=== PATIENT | female | born 2005 | race African-American/Black ===

== ENCOUNTER 2025-04-28 17:17 | Emergency (ER) | payer OTHER, SELFPAY ==
--- OUTSIDE RECORDS SUMMARY | 2025-04-28 17:24 | XMS_ITS ---
Author Organization [facility] Address [address] [place], [place] [id number] Care Team Providers Care Child Protective Investigator Name Role Phone SAUD COVARRUBIAS Unavailable [phone] Angelique Flores Unavailable Unavailable REASON FOR VISIT foot pain follow up, swelling left foot follow up Social History Tobacco Use: Social History Observation Description Date Details (start date - stop date) Never Smoker NA - NA Tobacco Control (Standard) Question Answer Notes Tobacco use: Nonsmoker Encounters Encounter Location Date Provider Diagnosis [facility] [address] [place], [place] [id number] 04/02/2025 SAUD COVARRUBIAS Left foot pain M79.672 [...] if symptoms worsen or would like orthotics Progress Notes * Igor JACK MDOB:2004 (19 yo F)Acc No.[id number]:04/02/2025 Patient: Breana CHAVARRIA Igor Monica Provider: Faith Covarrubias DPM :2005 A ge:19 Y S ex:Female Date:04/02/2025 Address:[address] [place] [address] [id number] Subjective: * Chief Complaints: * 1 . Foot pain follow up. 2. Swelling left foot follow up. * HPI: H PI: Follow Up Visit P atient presents for follow up visit for left foot pain., Patient states their problem is, improving. Still has occassional pain but patient thinks it is because her foot is becoming flatter., MA: abdoulaye. * ROS: G eneral / Constitutional: Patient [...] denies b alance difficulty, Numbness, Burning/Tingling. * Medical History: * Social History: T obacco Use: T obacco Control (Standard) T obacco use: N onsmoker. * Medications: N one Objective: * Vitals: * Examination: C onstitutional: Constitutional T he [...] if symptoms worsen or would like orthotics) * Billing Information: * Visit Code: 71324 Office Visit, Est Pt., Level 3. * Procedure Codes: * Electronic signature of GUS SMITH DPM on 04/28/2025 at 05:24 PM CDT Sign off status: Pending * Provider: Faith Covarrubias DPM Date: 0 04/02/2025 Generated for Arelii lin/Bryon/eTransmitting on: 0 04/28/2025 05:24 PM CDT History and Physical Notes * HPI (History [...]
--- OUTSIDE RECORDS SUMMARY | 2025-04-28 17:24 | XMS_ITS | Clinical Summary ---
Author Organization [facility] Address [address] [place] [address] Care Team Providers Care Data Officer Name Role Phone Marvin Saucedo MD Primary Care Provider [phone] Source Comments [facility],non-owned Affiliates and Associated Physician Practices is amultiple site organization consisting of ambulatory clinics and hospital sitesin [place], [place], [place] and [place]. This disclosure is being madepursuant to the Care Everywhere program and may not contain all information available regarding this patient. Last updated 18.[facility] Allergies No known active allergies Medications * Be aware that medications may not be up to date on this document. Alwaysverify current medications with the patient. montelukast (SINGULAIR) 4 MG chew tablet Take 4 mg by mouth at bedtime. Active albuterol HFA (PROVENTIL;VENT RESHMA;PROAIR) 108 (90 BASE) MCG/ACT inhaler Inhale 2 Puffs by mouth every 6 hours as needed. Active fluticasone-vijaya meterol hfa (ADVAIR HFA) 115-21 MCG/ACT AERO Inhale 2 Puffs by mouth once daily. Active diazepam (DIASTAT) 10 MG gel Insert 5 mg into the rectum once as needed for Seizures (Lasting over 3 minutes) for 1 dose. 2 Box 1 01/10/2012 Active amoxicillin (AMOXIL) 250 MG capsule Take 250 mg by mouth. Active Active Problems Problem Noted Date Diagnosed Date Chest pain 10/23/2013 Family History Medical History Relation Name Comments Arrhythmia Neg Hx CVA<55(male) Neg Hx CVA<65(female) Neg Hx Cardiomyopathy Neg Hx Congenital Heart defect Neg Hx Heart Surgery Neg Hx Long QT Syndrome Neg Hx AK<55(male) Neg Hx AK<65(female) Neg Hx Marfan Syndrome Neg Hx Pacemaker Neg Hx Sudd. <30 Neg Hx Social History Tobacco Use Types Packs/Day Years Used Date Smoking Tobacco: Never Assessed Comments Unknown Sex and Gender Information Value Date Recorded Sex Assigned at Not on file Legal Sex Female 10:02 AM HONING MACHINE OPERATOR PRODUCTION Gender Identity Not on file Sexual Orientation Not on file Last Filed Vital Signs Vital Sign Reading Time Taken Comments Blood Pressure 86/54 10/23/2013 10:30 AM HONING MACHINE OPERATOR PRODUCTION Pulse 90 10/23/2013 10:30 AM HONING MACHINE OPERATOR PRODUCTION Temperature 37.1 C (98.8 F) 01/11/2012 12:09 AM HONING MACHINE OPERATOR PRODUCTION Respiratory Rate 20 10/23/2013 10:30 AM HONING MACHINE OPERATOR PRODUCTION Oxygen Saturation 100% 10/23/2013 10:30 AM HONING MACHINE OPERATOR PRODUCTION Inhaled Oxygen Concentration - - Weight 33.8 kg (74 lb 8.3 oz) 10/23/2013 10:30 A M HONING MACHINE OPERATOR PRODUCTION Height 140 cm (4' 7.12) 10/23/2013 10:30 AM HONING MACHINE OPERATOR PRODUCTION Body Mass Index 17.25 10/23/2013 10:30 AM HONING MACHINE OPERATOR PRODUCTION Plan of Treatment Health Maintenance Due Date Last Done Comments HIV SCREENING 2019 HPV VACCINE (1 - 3-dose series) 2019 CHLAMYDIA/GONORRHEA SCREENING 2020 MENINGOCOCCAL (Group B) VACC INE SHARED DECISION-MAKING (1 of 2 - Standard) 2020 HEPATITIS C SCREENING 10/30/2022 DTAP/TDAP/TD VACCINES (1 - Tdap) 2023 HEPATITIS B VACCINE (1 of 3 - 19+ 3-dose series) 2023 COVID-19 VACCINE (1 - 2023-2 5 season) 2024 DEPRESSION SCREENING 11/27/2024 INFLUENZA VACCINE (Season Ended) 2025 ZOSTER VACCINE (1 of 2) 2054 HIB VACCINE Aged Out No longer eligi ble based on patient's age to complete this topic MENINGOCOCCAL GROUPS A/C/Y/W VACCINE Aged Out No longer eligible b ased on patient's age to complete this topic PNEUMOCOCCAL VACCINE Aged Out No long er eligible based on patient's age to complete this topic Insurance [employer] Care Teams Data Officer Relationship Specialty Start Date End Date Marvin Saucedo MD [address] [facility] [place] [address] PCP - General 02/07/11
--- OUTSIDE RECORDS SUMMARY | 2025-04-28 17:25 | XMS_ITS | Clinical Summary ---
Author Organization [facility] Medical Office Building [address] Address [address] [place] [address] Care Team Providers Care Nail Mill Worker Name Role Phone Angelique Flores MD Primary Care Provider [phone] Allergies No known active allergies Medications methylPREDNISol one (Medrol, Gene,) 4 mg Dosepack follow package directions 1 packet 4 Active promethazine-DM (PROMETHAZINE-D M) 1.25-3 mg/mL syrup Take 5 mL by mouth 4 (four) times a day as needed for cough 118 mL 4 Active Active Problems No known active problems Encounters Date Type Department Care Team Description 02/27/2025 3:00 PM CDT Therapy [facility] OP Physical Therapy [address] [place] [phone] Lilly Reese, PT Edema of foot (Primary Dx) 02/27/2025 Plan of Care Documentation [facility] OP Physical Therapy [address] [place] [phone] from Last 3 Months Surgical History Surgery Date Site/Laterality Comments BREAST BIOPSY 02/28/2023 Left Family History Medical History Relation Name Comments Breast cancer Maternal Grandmother Breast cancer Maternal Great-Grandmother Breast cancer Mother Breast cancer Mother's Brother Relation Name Status Comments Maternal Grandmother Maternal Great-Grandmother Mother Mother's Brother Social History Tobacco Use Types Packs/Day Years Used Date Smoking Tobacco: Never Assessed Personal Safety Answer Date Recorded Have you ever been in or are you currently in a harmful physical or emotional relationship or is someone making you feel afraid or unsafe? Denies 06/06/2024 Comments Unknown Sex and Gender Information Value Date Recorded Sex Assigned at Not on file Legal Sex Female 2:36 PM WELDER PRODUCTION LINE COMBINATION Gender Identity Not on file Sexual Orientation Not on file Obstetrics History Last Filed Vital Signs Vital Sign Reading Time Taken Comments Blood Pressure 121/71 06/06/2024 4:21 PM CDT Pulse 106 06/06/2024 4:21 PM CDT Temperature 36.6 C (97.8 F) 06/06/2024 2:33 PM CDT Respiratory Rate 20 06/06/2024 4:21 PM CDT Oxygen Saturation 100% 06/06/2024 4:21 PM CDT Inhaled Oxygen Concentration - - Weight 62.6 kg (138 lb 0.1 oz) 06/06/2024 2:33 P M CDT Height 172.7 cm (5' 8) 06/06/2024 2:33 PM CDT Body Mass Index 20.98 06/06/2024 2:33 PM CDT Plan of Treatment Health Maintenance Due Date Last Done Comments Depression Screening 2004 Hepatitis C Screening 2004 Pneumococcal vaccine <65 (1 of 1 - PPSV23) 2010 02/06/2006, 08/05/2005, 06/13/2005, Additional history exists HPV Vaccines (1 - 3-dose series) 2019 Meningococcal B Vaccine (1 o f 2 - Standard) 2020 Regular Well Visit/Exam 18-64 2022 Covid-19 Vaccine (3 - 2023-2 5 season) 2024 03/17/2021, 02/23/2021 Influenza Vaccine (Season Ended) 2025 08/23/2022, 08/11/2020, 10/29/2019, Additional history exists DTaP/Tdap/Td Vaccine (7 - Td or Tdap) 07/11/2026 07/11/2016, 06/01/2010, 05/08/2006, Additional history exists Hepatitis B Screening Completed 12/08/2005 , 08/05/2005, 01/18/2005 Varicella Vaccines Completed 07/07/2008, 12/08/2005 Meningococcal Vaccine Completed 12/04/2020, 016 Medical Devices Implanted Type Area Buffer Operator Device Identifier Shelf Expiration Date Model / Serial / Lot Eve Limited Partnership Marker Biospy Site Mini Cork Shape [employer] Smaariannek-Finaero - [id number] Implanted:Qty: 1 on 02/28/2023 at [facility] Clip Left: Breast [employer] [id number] 07/05/2023 [facility] / / [id number] Insurance [facility] [id number] [facility] [id number] Care Teams Nail Mill Worker Relationship Specialty Start Date End Date Angelique Flores MD [address] [place] [address] PCP - General Family Medicine 01/17/23
--- OUTSIDE RECORDS SUMMARY | 2025-04-28 17:25 | XMS_ITS ---
Author Organization [facility] Address [address] [place], [place] [id number] Care Team Providers Care Store Loss Prevention Manager Name Role Phone SAUD COVARRUBIAS Unavailable [phone] Angelique Flores Unavailable Unavailable REASON FOR VISIT ultra sound follow up Encounters Encounter Location Date Provider Diagnosis [facility] [address] [place], [place] [phone] 01/08/2025 SAUD COVARRUBIAS Plan Of Treatment No Information Progress Notes * Igor JACK MDOB:2004 (19 yo F)Acc No.[id number]:01/08/2025 Patient: Breana Igor CHAVARRIA Provider: Faith Covarrubias DPM :2005 A ge:19 Y S ex:Female Date:01/08/2025 Address:[address] [facility] Melany [id number] Subjective: * Chief Complaints: * 1 . Ultra sound follow up. * Medical History: Objective: * Vitals: Assessment: Plan: * Treatment: * Billing Information: * Visit Code: * Procedure Codes: * Electronic signature of GUS SMITH DPM on 04/28/2025 at 05:24 PM CDT Sign off status: Pending * Provider: Faith Covarrubias DPM Date: 0 01/08/2025 Generated for Tom ceballos/Bryon/Johnitting on: 0 04/28/2025 05:24 PM CDT
--- OUTSIDE RECORDS SUMMARY | 2025-04-28 17:25 | XMS_ITS ---
Author Organization [facility] Address [address] [place], [place] [phone] Care Team Providers Care Dry Cans Back Tender Name Role Phone SAUD COVARRUBIAS Unavailable [phone] Angelique Flores Unavailable Unavailable REASON FOR VISIT discuss ultra sound, ultra sound follow up, swelling left foot follow up Encounters Encounter Location Date Provider Diagnosis [facility] [address] [place], [place] [phone] 01/29/2025 SAUD COVARRUBIAS Left foot pain M79.672 [...] more lymphatic massage and see dr viveros Progress Notes * Igor JACK MDOB:2004 (19 yo F)Acc No.[id number]:01/29/2025 Patient: Igor BRIGGS Provider: Faith Covarrubias DPM :2005 A ge:19 Y S ex:Female Date:01/29/2025 Address:[address] [place] [address] [facility] [facility] [id number] Subjective: * Chief Complaints: * 1 . Discuss ultra sound. 2. Ultra sound follow up. 3. Swelling left foot follow up. * HPI: H PI: Follow Up Visit P atient presents for follow up visit for ultra sound results. Patient mentioned that she is feeling more pain in the foot., Patient states their problem is, unchanged., MA: abdoulaye. Has an appointment with Dr Viveros next [...] alance difficulty, Numbness, Burning/Tingling. * Medical History: Objective: * Vitals: * Examination: C onstitutional: [...] more lymphatic massage and see dr viveros) * Billing Information: * Visit Code: 48934 Office Visit, Est Pt., Level 3. * Procedure Codes: * Electronic signature of GUS SMITH DPM on 04/28/2025 at 05:25 PM CDT Sign off status: Pending * Provider: Faith Covarrubias DPM Date: 0 01/29/2025 Generated for Tom ceballos/Bryon/Josh on: 0 04/28/2025 05:25 PM CDT History and Physical Notes * HPI (History of Present Illness) Category Sub-Category Detail Notes Category Not es HPI Follow Up Visit Patient presents for follow up visit for ultra sound results. Patient mentioned that she is feeling more pain in the foot., Patient states their problem is, unchanged., MA: Has an appointment with Dr Viveros next [...]
--- OUTSIDE RECORDS SUMMARY | 2025-04-28 17:25 | XMS_ITS | Referral Summary ---
Author Organization [facility] Medical Office Building 1 Address [address] [place] [address] Care Team Providers Care Knitter Hand Name Role Phone Angelique Flores MD Primary Care Provider [phone] Encounters Date Type Department Care Team Description 02/27/2025 Plan of Care Documentation [facility] OP Physical Therapy [address] [place] [phone] 02/27/2025 3:00 PM CDT Therapy [facility] OP Physical Therapy [address] [place] [phone] Lilly Reese, PT Edema of foot (Primary Dx) from Last 3 Months Allergies No known active allergies Medications methylPREDNISol one (Medrol, Gene,) 4 mg Dosepack follow package directions 1 packet 4 Active promethazine-DM (PROMETHAZINE-D M) 1.25-3 mg/mL syrup Take 5 mL by mouth 4 (four) times a day as needed for cough 118 mL 4 Active Active Problems No known active problems Social History Tobacco Use Types Packs/Day Years [...] on file Legal Sex Female 2:36 PM SINGLE NEEDLE OPERATOR Gender Identity Not on file Sexual Orientation [...] 06/06/2024 2:33 PM CDT Plan of Treatment Not on file Medical Devices Implanted Type Area Assistant Program Manager Device Identifier Shelf Expiration Date Model / Serial / Lot Dok[employer]ok Limited Partnership Marker Biospy Site Mini Cork Shape [employer] Jennifer-Finaero - [id number] Implanted:Qty: 1 on 02/28/2023 at [facility] Clip Left: Breast [employer] Partnership [id number] 07/05/2023 [facility]ArianneEcovision-FINA ERO / / [id number] Insurance [facility] [id number] [facility] [id number] Care Teams Knitter Hand Relationship Specialty Start Date End Date Angelique Flores MD [address] [phone] PCP - General Family Medicine 01/17/23
--- OUTSIDE RECORDS SUMMARY | 2025-04-28 17:25 | XMS_ITS | Patient Health Record ---
Author Organization [facility] Address [address] [place], [place] [id number] Care Team Providers Care Registrar Museum Name Role Phone SAUD LUND Unavailable [phone] Angelique Flores Unavailable Unavailable Allergies No Known Allergies Results Component Value Reference Range Notes MRI : Foot, Left Without Con trast Reviewed date:06/04/2024 04:37:45 PM Interpretation:SEE MRI REPORT Performing Lab: Notes/Report: SEE MRI REPORT Reason For Referral No Information Immunizations Vaccine Route Administration Date Status Comme nts Pneumococcal conjugate PCV 13 Unknown 05/01/2024 Refuse d Influenza, high dose seasonal Unknown 05/01/2024 Refuse d Social History Tobacco Use: Social History Observation Description Date Details (start date - stop date) Never Smoker NA - NA Tobacco Control (Standard) Question Answer Notes Tobacco use: Nonsmoker Vital Signs Height-cm 172.72 cm 08/15/2024 Weight-kg 67.13 kg 08/15/2024 BMI Percentile 59.24 % 08/15/2024 Height 68 in 08/15/2024 Weight 148 lbs 08/15/2024 BMI 22.5 kg/m2 08/15/2024 Procedures Procedure Date Ordered Date Performed Result Body Sit e PHYSICAL THERAPY 06/18/2024 07/25/2024 SEE PHYSICAL THERAP Y REPORT PHYSICAL THERAPY 01/29/2025 02/27/2025 SEE PHYSICAL THERAP Y REPORT Encounters Encounter Location Date Provider Diagnosis [facility] [address] [id number] 10/31/2024 SAUDGUILLERMO LUND Left foot pain M79.6 72 ; Lymphedema of left leg I89.0 ; Pain in right foot M79.671 ; Edema of foot R60.0 and Difficulty in walking R26.2 [facility] [place] [address] [id number] 01/08/2025 SAUDGUILLERMO LUND Left foot pain M79.6 72 ; Lymphedema of left leg I89.0 ; Pain in right foot M79.671 ; Edema of foot R60.0 and Difficulty in walking R26.2 [facility] [place] [address] [id number] 01/29/2025 SAUDGUILLERMO LUND Left foot pain M79.6 72 ; Lymphedema of left leg I89.0 ; Pain in right foot M79.671 ; Edema of foot R60.0 and Difficulty in walking R26.2 [facility] [place] [address] [id number] 04/02/2025 SAUD LUND Left foot pain M79.6 72 ; Lymphedema of left leg I89.0 ; Pain in right foot M79.671 ; Edema of foot R60.0 and Difficulty in walking R26.2 [facility] [place] [address] [id number] 05/01/2024 SAUD LUND Pathological fractur e in other disease, left foot, initial encounter for fracture M84.675A ; Left foot pain M79.672 ; Pain in right foot M79.671 ; Edema of foot R60.0 and Difficulty in walking R26.2 [facility] [place] [address] [id number] 05/22/2024 SAUD LUND Left foot pain M79.6 72 ; Pathological fracture in other disease, left foot, subsequent encounter for fracture with routine healing M84.675D ; Pain in right foot M79.671 ; Edema of foot R60.0 and Difficulty in walking R26.2 [facility] [address] [id number] 06/18/2024 SAUD LUND Left foot pain M79.6 72 ; Pathological fracture in other disease, left foot, subsequent encounter for fracture with routine healing M84.675D ; Pain in right foot M79.671 ; Edema of foot R60.0 and Difficulty in walking R26.2 [facility] [address] [place], [place] [id number] 08/15/2024 SAUD LUND Left foot pain M79.6 72 ; Pain in right foot M79.671 ; Edema of foot R60.0 and Difficulty in walking R26.2 Assessments Encounter Date Diagnosis (ICD Code) Assessment Notes Treatment Notes Treatment Clinical Notes Section Notes 05/01/2024 Pathological fracture in other disease, left foot, initial encounter for fracture (ICD-10 - M84.675A) 05/01/2024 Left foot pain (ICD-10 - M79.672) 05/22/2024 Pathological fracture in other disease, left foot, subsequent encounter for fracture with routine healing (ICD-10 - M84.675D) 05/22/2024 Left foot pain (ICD-10 - M79.672) 06/18/2024 Left foot pain (ICD-10 - M79.672) 08/15/2024 Pain in right foot (ICD-10 - M79.671) 08/15/2024 Left foot pain (ICD-10 - M79.672) 10/31/2024 Left foot pain (ICD-10 - M79.672) 10/31/2024 Lymphedema of left leg (ICD-10 - I89.0) 01/08/2025 Left foot pain (ICD-10 - M79.672) 01/29/2025 Left foot pain (ICD-10 - M79.672) 04/02/2025 Left foot pain (ICD-10 - M79.672) 04/02/2025 Lymphedema of left leg (ICD-10 - I89.0) 01/29/2025 Lymphedema of left leg (ICD-10 - I89.0) 01/08/2025 Lymphedema of left leg (ICD-10 - I89.0) 08/15/2024 Edema of foot (ICD-10 - R60.0) 10/31/2024 Pain in right foot (ICD-10 - M79.671) 06/18/2024 Pathological fracture in other disease, left foot, subsequent encounter for fracture with routine healing (ICD-10 - M84.675D) 05/01/2024 Pain in right foot (ICD-10 - M79.671) 05/22/2024 Pain in right foot (ICD-10 - M79.671) 05/01/2024 Edema of foot (ICD-10 - R60.0) 05/22/2024 Edema of foot (ICD-10 - R60.0) 06/18/2024 Pain in right foot (ICD-10 - M79.671) 08/15/2024 Difficulty in walking (ICD-10 - R26.2) 01/08/2025 Pain in right foot (ICD-10 - M79.671) 10/31/2024 Edema of foot (ICD-10 - R60.0) 01/29/2025 Pain in right foot (ICD-10 - M79.671) 04/02/2025 Pain in right foot (ICD-10 - M79.671) 01/29/2025 Edema of foot (ICD-10 - R60.0) 01/08/2025 Edema of foot (ICD-10 - R60.0) 10/31/2024 Difficulty in walking (ICD-10 - R26.2) 06/18/2024 Edema of foot (ICD-10 - R60.0) 05/01/2024 Difficulty in walking (ICD-10 - R26.2) 05/22/2024 Difficulty in walking (ICD-10 - R26.2) 04/02/2025 Edema of foot (ICD-10 - R60.0) 06/18/2024 Difficulty in walking (ICD-10 - R26.2) 01/08/2025 Difficulty in walking (ICD-10 - R26.2) 01/29/2025 Difficulty in walking (ICD-10 - R26.2) 04/02/2025 Difficulty in walking (ICD-10 - R26.2) 10/31/2024 [...] discontinue the medication if GI upset occurs. 01/08/2025 Other 1.Swelling is not stemming from [...] Ortiz and his input in this matter. 01/29/2025 Other 1.Swelling is not stemming from [...] Ortiz and his input in this matter. According to patient ultrasound stated that she did not need surgery but she doesn't know why. 04/02/2025 Other 1.Swelling is not stemming from [...] I recommended functional orthotics for the patient. 05/01/2024 Other 1. Stress Fracture: I discussed with the patient the nature and etiology of stress fractures. I discussed various treatment options consisting of immobilization, reducing activity and rest. I also discussed the use of orthotics to help prevent recurrence. 2. Cam Walker: A CAM walker was fitted and dispensed. The patient was instructed on its use. 3. Ice: Apply ice to the painful area for 10 - 15 minutes as needed 4. Prescribed Medrol Dose Pack for patient. Take as instructed on package and discontinue if any GI disturbance occurs 5. Patient was instructed to try an OTC topical pain reliever/anti-in flammatory such as Voltaren Gel, Aspercreme with Lidocaine, or Biofreeze etc over the affected areas. Spot test on hand or somewhere visible prior to starting to watch for possible rash/allergic reaction 6. Bunion: Discussed various treatments with the patient regarding hallux abducto valgus deformity. Discussed conservative care consisting of padding, wider shoes, anti-inflammator ies, and orthotics. Discussed surgical treatment options and answered all questions about the intra-operative and post-operative treatment course. 05/22/2024 Other 1. Stress Fracture: I discussed with the patient the nature and etiology of stress fractures. I discussed various treatment options consisting of immobilization, reducing activity and rest. I also discussed the use of orthotics to help prevent recurrence. 2. Continue in CAM boot 3. Ice: Apply ice to the painful area for 10 - 15 minutes as needed 4. Patient was instructed to try an OTC topical pain reliever/anti-in flammatory such as Voltaren Gel, Aspercreme with Lidocaine, or Biofreeze etc over the affected areas. Spot test on hand or somewhere visible prior to starting to watch for possible rash/allergic reaction 5. Request for MRI { } Right {x } Left { } Bilateral { x} Foot { } Ankle { } Bilateral { } With Contrast { x} Without Contrast *Reason - stress fracture 5th metatarsal, chronic edema, xrays negative 06/18/2024 Other 1. Possible that patient may be dealing with the onset of Lymphedema Praecox 2. Continue in CAM boot if needed to help with walking 3. Compression Stocking: The patient was instructed to continue in compression stockings for edema management. Advised patient to elevate feet at rest. 4. Patient was instructed to try an OTC topical pain reliever/anti-in flammatory such as Voltaren Gel, Aspercreme with Lidocaine, or Biofreeze etc over the affected areas. Spot test on hand or somewhere visible prior to starting to watch for possible rash/allergic reaction 5. Reviewed results of MRI with patient - findings show no significant bone or tendon pathology, subcutaneous edema noted 6. Will refer out to therapy for Lymphedema treatment/massag e to see if this improves swelling/pain 7. Blood work orders placed to rule out possible autoimmune issues 08/15/2024 Other 1. Possible that patient may be dealing with the onset of Lymphedema Praecox 2. Compression Stocking: The patient was instructed [...] to watch for possible rash/allergic reaction 4. Continue therapy for Lymphedema treatment/massag e to see if this improves swelling/pain Plan Of Treatment No Information Insurance Providers Payer Name Payer Address Payer Phone Subscriber Number Group Number Insured Name Patient Relationship to Insured Coverage Start Date Coverage End Date [employer] PPO [address] [place], [place] [id number] Igor Jack Self - patient is the insured Medical (General) History Medical History History ICD Code Asthma/Bronchitis
[2025-04-28 17:28] VITALS: BP 134/70; PULSE 131; RESP 20; TEMP 36.9; O2SAT 100
--- NOTE | 2025-04-28 18:03 | ED_ITS ---
HPI - General Adult General Chief complaint: Upper Respiratory Infection Stated complaint: Cough / Wheezing History of Present Illness HPI narrative: Igor Jack is a 19-year-old female with past medical history of asthma. Patient states that today while she was work she started to get an asthma attack and had it due to nebulize treatments. She states that now her breathing has improved and she is feeling better but feels like she may need to be on steroids to help her asthma attack that she had today. She denies any other URI symptoms fevers chest pain shortness of breath. Related Data Home Medications ?Medication ?Instructions ?Recorded ?Confirmed ?Last Taken ?Type albuterol 90 mcg-budesonide 80 2 inh inhalation DAILY PRN 04/28/25 04/28/25 Unknown History mcg/actuation HFA aerosol inhaler shortness of breath (Airsupra) albuterol 90 mcg-budesonide 80 inh inhalation 04/28/25 Unknown History mcg/actuation HFA aerosol inhaler (Airsupra) ferrous sulfate 325 mg (65 mg mg 04/28/25 Unknown History iron) tablet (FeroSul) Allergies Allergy/AdvReac Type Severity Reaction Status Date / Time No Known Allergies Allergy Verified 04/28/25 17:36 Review of Systems Review of Systems: All systems reviewed & are unremarkable except as noted in HPI and below Exam Narrative: GENERAL: Well-appearing, well-nourished, and in no acute distress. HEAD: Normocephalic, atraumatic. EYES: PERRLA and EOMI. ENT: Nares clear, no rhinorrhea or epistaxis. Mucous membranes moist. Oropharynx without tonsillar hypertrophy exudate or other lesions. Bilateral TMs pearly gomez non bulging NECK: Supple. No adenopathy or masses. No carotid bruits or JVD CHEST: Clear to auscultation. No respiratory distress. No wheezes rales or rhonchi HEART: Regular rate and rhythm. No murmur heard. Normal peripheral pulses. ABDOMEN: Soft, nontender, nondistended, normal active bowel sounds. EXTREMITIES: Normal range of motion. No edema. SKIN: Warm, dry, no rash. NEURO: No focal deficits. Alert and oriented x3. PSYCH: Normal mood and affect. Course Course Level of Care: Express Care Visit Vital Signs Vital signs: Vital Signs Temperature 36.9 C 04/28/25 17:28 Pulse Rate 131 H 06/02/25 17:28 Respiratory Rate 20 04/28/25 17:28 Blood Pressure 134/70 04/28/25 17:28 Pulse Oximetry 100 04/28/25 17:28 Oxygen Delivery Room Air 04/28/25 17:28 Temperature 36.9 C 04/28/25 17:28 Pulse Rate 131 H 04/28/25 17:28 Respiratory Rate 20 04/28/25 17:28 Blood Pressure 134/70 04/28/25 17:28 Pulse Oximetry 100 04/28/25 17:28 Oxygen Delivery Room Air 04/28/25 17:28 Medical Decision Making MDM Narrative Medical decision making narrative: 19 y/o female presents after having an asthma attack today. She states she did two neb treatments earlier today and her symptoms have improved but concerned she may need a round of steroids LUng sounds clear throughout at this time Patient is very well appearing heart rate improving she states it was elevated after the neb treatment. PLan to give a dose of prednisone here and d/c with continued prednisone close PCP follow up Return precautions discussed Medical Records Medical records reviewed: Yes I reviewed the external patient's medical records. Vital Signs Vital Signs: Vital Signs Temperature 36.9 C 04/28/25 17:28 Pulse Rate 131 H 04/28/25 17:28 Respiratory Rate 20 04/28/25 17:28 Blood Pressure 134/70 04/28/25 17:28 Pulse Oximetry 04/28/25 17:28 Oxygen Delivery Room Air 04/28/25 17:28 Temperature 36.9 C 04/28/25 17:28 Pulse Rate 131 H 04/28/25 17:28 Respiratory Rate 04/28/25 17:28 Blood Pressure 134/70 04/28/25 17:28 Pulse Oximetry 04/28/25 17:28 Oxygen Delivery Room Air 04/28/25 17:28 Vitals reviewed Discharge Plan Discharge Clinical Impression: Asthma Qualifiers: Asthma severity: mild Asthma persistence: intermittent Asthma complication type: unspecified Qualified Code(s): J45.20 - Mild intermittent asthma, uncomplicated Patient Disposition: Home Condition: Stable Instructions: Antibiotic Form Additional Instructions: Continue to take the Prednisone as ordered for the next 5 days Continue your inhalers as ordered Continue to take the Zyrtec for allergies as discussed Follow up with your PCP in 1 week If you develop any worsening symptoms : Wheezing/ Shortness of breath/ fever/ chest pain proceed to the ER Patient Language: Sri Lankan Prescriptions: New prednisone 20 mg tablet 40 mg PO DAILY Qty: 10 0RF Rx Instructions: Take two tabs daily for 5 days No Action ferrous sulfate [FeroSul] 325 mg (65 mg iron) tablet Airsupra 90-80 mcg/actuation HFA aerosol inhaler INHALATION Airsupra 90-80 mcg/actuation HFA aerosol inhaler 2 inh inhalation DAILY PRN (Reason: shortness of breath) Patient Comments: for asthma Follow-up/Referrals: Mark,Angelique Kc MD [Primary Care Provider] - 1 Week Time of Disposition: 18:04
[2025-04-28] MEDS: predniSONE 20 MG TABLET 40 MG PO (18:07)
== END 2025-04-28 18:10 | disposition home or self-care (01) ==
PROVIDERS: Emergency Provider Nurse Practitioner Family; PCP Family Medicine
DX: J45.20 Mild intermittent asthma, uncomplicated (principal)
CPT/HCPCS: 99213; G0463; J7512

== ENCOUNTER 2025-10-05 11:19 | Emergency (ER) | payer OTHER, SELFPAY ==
--- OUTSIDE RECORDS SUMMARY | 2024-10-31 04:30 | XMS_ITS ---
Author Organization [facility] Address [address] [place], [place] [id number] Care Team Providers Care Cloth Finishing Range Back Tender Name Role Phone SAUD COVARRUBIAS Unavailable [phone] Angelique Flores Unavailable Unavailable REASON FOR VISIT PT follow up, swelling left foot follow up Medications Medication SIG (Take, Route, Frequency, Duration) Notes Start Date End Date Status Diclofenac Sodium 75 MG Tablet Delayed Release 1 tablet as needed Orally Twice a day; Duration: 14 days 10/31/2024 11/14/2024 Active Encounters Encounter Location Date Provider Diagnosis [facility] [address] [place], [place] [id number] 10/31/2024 SAUD COVARRUBIAS Left foot pain M79.672 ; Lymphedema of left leg I89.0 ; Pain in right foot M79.671 ; Edema of foot R60.0 and Difficulty in walking R26.2 Assessments Encounter Date Diagnosis (ICD Code) Assessment Notes Treatment Notes Treatment Clinical Notes Section Notes 10/31/2024 Left foot pain (ICD-10 - M79.672) 10/31/2024 Lymphedema of left leg (ICD-10 - I89.0) 10/31/2024 Pain in right foot (ICD-10 - M79.671) 10/31/2024 Edema of foot (ICD-10 - R60.0) 10/31/2024 Difficulty in walking (ICD-10 - R26.2) 10/31/2024 Other 1. Still believe it is possible that patient may be dealing with the onset of Lymphedema Praecox, parents have issues with lymphedema as well. Swelling is not stemming from bunion and MRI was completely negative of the left foot for pathology. 2. Compression Stocking: The patient was instructed to continue in compression stockings for edema management. Advised patient to elevate feet at rest. 3 Patient was instructed to try an OTC topical pain reliever/anti-in flammatory such as Voltaren Gel, Aspercreme with Lidocaine, or Biofreeze etc over the affected areas. Spot test on hand or somewhere visible prior to starting to watch for possible rash/allergic reaction 4. May continue in walking boot if she cannot wear a shoe due to swelling 5. Recommend patient return to therapy for Lymphedema treatment/massag e to see if this improves swelling/pain but patient states they did no massage treatment for her just told her to wear compression. She is not opposed to going back but wishes to see Vascular first. 6. Will refer to vascular for more in depth evaluation. Appreciate Dr Ortiz and his input in this matter. 7. The patient was prescribed Diclofenac 75mg, one tablet BID. They were advised to discontinue the medication if GI upset occurs. Plan Of Treatment Medication Medication Name Sig Start Date Stop Date Notes Diclofenac Sodium 75 MG Tabl et Delayed Release 1 tablet as needed Orally Twice a day; Duration: 14 days 10/31/2024 11/14/2024 Treatment Notes Assessment Notes Other 1. Still believe it is possible that patient may be dealing with the onset of Lymphedema Praecox, parents have issues with lymphedema as well. Swelling is not stemming from bunion and MRI was completely negative of the left foot for pathology. 2. Compression Stocking: The patient was instructed to continue in compression stockings for edema management. Advised patient to elevate feet at rest. 3 Patient was instructed to try an OTC topical pain reliever/anti-inflammatory such as Voltaren Gel, Aspercreme with Lidocaine, or Biofreeze etc over the affected areas. Spot test on hand or somewhere visible prior to starting to watch for possible rash/allergic reaction 4. May continue in walking boot if she cannot wear a shoe due to swelling 5. Recommend patient return to therapy for Lymphedema treatment/massage to see if this improves swelling/pain but patient states they did no massage treatment for her just told her to wear compression. She is not opposed to going back but wishes to see Vascular first. 6. Will refer to vascular for more in depth evaluation. Appreciate Dr Ortiz and his input in this matter. 7. The patient was prescribed Diclofenac 75mg, one tablet BID. They were advised to discontinue the medication if GI upset occurs. Next Appt Details Follow Up: prn, Reason: will follow up with patient once she has seen vascular History and Physical Notes * HPI (History of Present Illness) Category Sub-Category Detail Notes Category Not es HPI Follow Up Visit Patient presents for follow up visit for Physical Therapy. Patient stated that she has not been going to therapy because she was told by the therapist that she only needed to come when the swelling got worse but Igor says she doesn't know what qualifies as worse because it is always swollen. Can't control the swelling still. Put the cam walker back on because it hurt to wear a shoe and was to swollen to get the shoe on. Has been using the cam walker for about a month this time. Been using a peice of craft foam to help with swelling. Which worked a little bit. Patient mentioned previously using predinisone for asthma, and afraid it didn't work when it was perscribed. Thinks we might need to try a different one. , MA: beg Examination Category Sub-Category Detail Notes Category Not es Dermatologic Skin findings: Skin is warm, dr y, supple with no breaks in the skin. Neurologic Gross sensation Gross sensation is intact to light touch. Vascular Dorsalis pedis pulse: 2/4, bilateral Edema: , non-pitting edema, diffuse to dorsal left midfoot Capillary refill: less than 3 seconds, bilaterally Posterior tibial pulse: 2/4, bilaterally Musculoskeletal Muscle Strength Muscle strength is 5/5 in regards to dorsiflexion, plantarflexion, inversion, and eversion in bilateral lower extremities. Pain on palpation There is mild pain o n palpation of the shaft of the 2nd and 3rd metatarsal left foot. Hallux Abducto Valgus There is lateral d eviation of bilateral hallux., There is a small medial prominence noted., The range of motion is, smooth Foot Structure The foot structure i s noted to be, planus, bilaterally Gait There is an antalgic gait noted Constitutional Constitutional The patient is a wake, alert, well developed, well groomed and well nourished. Progress Notes * Igor JACK MDOB:2004 (19 yo F)Acc No.[id number]:10/31/2024 Patient: Igor Pérez Provider: Faith Covarrubias DPM :2005 A ge:18 Y S ex:Female Date:10/31/2024 Address:[address] [place] [address] [place], [id number] Subjective: * Chief Complaints: * P T follow upSwelling left foot follow up * HPI: H PI: Follow Up Visit P atient presents for follow up visit for Physical Therapy. Patient stated that she has not been going to therapy because she was told by the therapist that she only needed to come when the swelling got worse but Igor says she doesn't know what qualifies as worse because it is always swollen. Can't control the swelling still. Put the cam walker back on because it hurt to wear a shoe and was to swollen to get the shoe on. Has been using the cam walker for about a month this time. Been using a peice of craft foam to help with swelling. Which worked a little bit. Patient mentioned previously using predinisone for asthma, and afraid it didn't work when it was perscribed. Thinks we might need to try a different one. , MA: beg. * ROS: G eneral / Constitutional: Patient denies c hills, fatigue, fever. C ardiovascular: Patient denies h air loss on leg, edema, cramps in legs and feet. M usculoskeletal: Patient denies c hildhood foot problems, weakness. ? P eripheral Vascular: Patient denies c old extremities, blood clots in legs. P odiatric: Patient complains of b all of foot pain, foot swelling.? S kin: Patient denies d iscoloration, nail changes. ? N eurologic: Patient denies b alance difficulty, Numbness, Burning/Tingling. * Medications: T akingDiclofenac Sodium 75 MG Tablet Delayed Release 1 tablet as needed Orally Twice a day , stop date 11/14/2024Medication List reviewed and reconciled with the patientTaking Diclofenac Sodium 75 MG Tablet Delayed Release 1 tablet as needed Orally Twice a day , stop date 11/14/2024Medication List reviewed and reconciled with the patient Objective: * Examination: C onstitutional: Constitutional T he patient is awake, alert, well developed, well groomed and well nourished.. M usculoskeletal: Muscle Strength M uscle strength is 5/5 in regards to dorsiflexion, plantarflexion, inversion, and eversion in bilateral lower extremities.. Pain on palpation T here is mild pain on palpation of the shaft of the 2nd and 3rd metatarsal left foot. . Hallux Abducto Valgus T here is lateral deviation of bilateral hallux., There is a small medial prominence noted., The range of motion is, smooth. Foot Structure T he foot structure is noted to be, planus, bilaterally. Gait T here is an antalgic gait noted. ? N eurologic: Gross sensation G ross sensation is intact to light touch..? V ascular: Dorsalis pedis pulse: 2 /4, bilateral. Posterior tibial pulse: 2 /4, bilaterally. Capillary refill: l ess than 3 seconds, bilaterally. Edema: , non-pitting edema, diffuse to dorsal left midfoot?. D ermatologic: Skin findings: S kin is warm, dry, supple with no breaks in the skin.. Assessment: * Assessment: 1. L ymphedema of left leg - I89.0 (Primary) 2 . L eft foot pain - M79.672? 3. P ain in right foot - M79.671 4 . E sagar of foot - R60.0? 5. D ifficulty in walking - R26.2 Plan: * Treatment: 2. O thers Notes: 1. S till believe it is possible that patient may be dealing with the onset of Lymphedema Praecox, parents have issues with lymphedema as well. S welling is not stemming from bunion and MRI was completely negative of the left foot for pathology. 2. Compression Stocking: The patient was instructed to continue in compression stockings for edema management. Advised patient to elevate feet at rest. 3 Patient was instructed to try an OTC topical pain reliever/anti-inflammatory such as Voltaren Gel, Aspercreme with Lidocaine, or Biofreeze etc over the affected areas. Spot test on hand or somewhere visible prior to starting to watch for possible rash/allergic reaction 4. May continue in walking boot if she cannot wear a shoe due to swelling 5. Recommend patient return to [facility] for Lymphedema treatment/massage to see if this improves swelling/pain but patient states they did no massage treatment for her just told her to wear compression. She is not opposed to going back but wishes to see Vascular first. 6. Will refer to vascular for more in depth evaluation. Appreciate Dr Ortiz and his input in this matter. 7. The patient was prescribed Diclofenac 75mg, one tablet BID. They were advised to discontinue the medication if GI upset occurs. * Follow Up: p rn (Reason: will follow up with patient once she has seen vascular) Billing Information: * Visit Code: 36128 Office Visit, Est Pt., Level 3. * Electronic signature of GUS SMITH DPM on 10/05/2025 at 11:22 AM TANK TENDER Sign off status: Pending * Provider: Faith Covarrubias DPM Date: 01/01/2024 Generated for Tom ceballos/Bryon/Johnitting on: 12/05/2024 11:22 AM TANK TENDER
--- OUTSIDE RECORDS SUMMARY | 2025-01-08 06:10 | XMS_ITS ---
Author Organization [facility] Address [address] [place], [place] [address] Care Team Providers Care Power House Engineer Name Role Phone SADU COVARRUBIAS Unavailable [phone] Angelique Folres Unavailable Unavailable REASON FOR VISIT ultra sound follow up, swelling left foot follow up Encounters Encounter Location Date Provider Diagnosis [facility] [address] [place], [place] [id number] 01/08/2025 SAUD COVARRUBIAS Left foot pain M79.672 ; Lymphedema of left leg I89.0 ; Pain in right foot M79.671 ; Edema of foot R60.0 and Difficulty in walking R26.2 Assessments Encounter Date Diagnosis (ICD Code) Assessment Notes Treatment Notes Treatment Clinical Notes Section Notes 01/08/2025 Left foot pain (ICD-10 - M79.672) 01/08/2025 Lymphedema of left leg (ICD-10 - I89.0) 01/08/2025 Pain in right foot (ICD-10 - M79.671) 01/08/2025 Edema of foot (ICD-10 - R60.0) 01/08/2025 Difficulty in walking (ICD-10 - R26.2) 01/08/2025 Other 1.Swelling is not stemming from bunion and MRI [...] e to see if this improves swelling/pain 6. Appreciate Dr Ortiz and his input in this matter. Plan Of Treatment Treatment Notes Assessment Notes Other 1.Swelling is not stemming from bunion and MRI [...] treatment/massage to see if this improves swelling/pain 6. Appreciate Dr Ortiz and his input in this matter. Next Appt Details Follow Up: prn, Reason: will follow up with patient once she has seen vascular History and Physical Notes * HPI (History of Present Illness) Category Sub-Category Detail Notes Category Not es HPI Follow Up Visit Patient presents for follow up visit for left foot ultrasound. Patient states that the ultrasound showed her vein reflux was at a 0.6. They told her that is not enough for surgerybut they would like to do a stab phlebectomy. She has an appointment next month to talk about the procedure. MA: mca, Examination Category Sub-Category Detail Notes Category Not es Dermatologic Skin findings: Skin is warm, dr bowers, supple with no breaks in the skin. [...] * Igor JACK MDOB:2004 (19 yo F)Acc No.[id number]:01/08/2025 Patient: Breana yazanIgor Provider: Faith Covarrubias DPM :2005 A ge:19 Y S ex:Female Date:01/08/2025 Address:[address] [place] [address] [id number] Subjective: * Chief Complaints: * U ltra sound follow upSwelling left foot follow up * HPI: H PI: Follow Up Visit P atient presents for follow up visit for left foot ultrasound. Patient states that the ultrasound showed her vein reflux was at a 0.6. They told her that is not enough for surgerybut they would like to do a stab phlebectomy. She has an appointment next month to talk about the procedure. MA: vijay, . * ROS: G eneral / Constitutional: Patient [...] b alance difficulty, Numbness, Burning/Tingling. * Medications: N one Objective: * Examination: C onstitutional: Constitutional T [...] in walking - R26.2 Plan: * Treatment: * Follow Up: p rn (Reason: will follow up with patient once she has seen vascular) Billing Information: * Visit Code: 85186 Office Visit, Est Pt., Level 3. * Electronic signature of GUS SMITH DPM on 10/05/2025 at 11:22 AM MANAGER OF APPLICATIONS DEVELOPMENT Sign off status: Pending * Provider: Faith Covarrubias DPM Date: 0 01/08/2025 Generated for Tom ceballos/Bryon/Johnitting on: 12/05/2024 11:22 AM MANAGER OF APPLICATIONS DEVELOPMENT
--- OUTSIDE RECORDS SUMMARY | 2025-01-29 08:30 | XMS_ITS ---
Author Organization [facility] Address [address] [place], [place] [phone] Care Team Providers Care Sed High School Teacher Name Role Phone SAUD COVARRUBIAS Unavailable [phone] Angelique Flores Unavailable Unavailable REASON FOR VISIT discuss ultra sound, ultra sound follow up, swelling left foot follow up Encounters Encounter Location Date Provider Diagnosis [facility] [address] [place], [place] [phone] 01/29/2025 SAUD COVARRUBIAS Left foot pain M79.672 ; Lymphedema of left leg I89.0 ; Pain in right foot M79.671 ; Edema of foot R60.0 and Difficulty in walking R26.2 Assessments Encounter Date Diagnosis (ICD Code) Assessment Notes Treatment Notes Treatment Clinical Notes Section Notes 01/29/2025 Left foot pain (ICD-10 - M79.672) 01/29/2025 Lymphedema of left leg (ICD-10 - I89.0) 01/29/2025 Pain in right foot (ICD-10 - M79.671) 01/29/2025 Edema of foot (ICD-10 - R60.0) 01/29/2025 Difficulty in walking (ICD-10 - R26.2) 01/29/2025 Other 1.Swelling is not stemming from bunion [...] if this improves swelling/pain 6. Appreciate Dr Viveros and his input in this matter. According to patient ultrasound stated that she did not need surgery but she doesn't know why. Plan Of Treatment Treatment Notes Assessment Notes [...] if this improves swelling/pain 6. Appreciate Dr Viveros and his input in this matter. According to patient ultrasound stated that she did not need surgery but she doesn't know why. Next Appt Details Follow Up: 2 Months, Reason: will follow up with patient once she has done more lymphatic massage and see dr viveros History and Physical Notes * HPI (History of Present Illness) Category Sub-Category Detail Notes Category Not es HPI Follow Up Visit Patient presents for follow up visit for ultra sound results. Patient mentioned that she is feeling more pain in the foot., Patient states their problem is, unchanged., MA: mf Has an appointment with Dr Viveros next week. Examination Category Sub-Category Detail Notes Category Not [...] * Igor JACK MDOB:2004 (19 yo F)Acc No.[id number]:01/29/2025 Patient: Breana yazan Igor M Provider: Faith Covarrubias DPM :2005 A ge:19 Y S ex:Female Date:01/29/2025 Address:[address] [place] [address] [address] [place] [id number] Subjective: * Chief Complaints: * D iscuss ultra soundUltra sound follow upSwelling left foot follow up * HPI: H PI: Follow Up Visit P atient presents for follow up visit for ultra sound results. Patient mentioned that she is feeling more pain in the foot., Patient states their problem is, unchanged., MA: . Has an appointment with Dr Viveros next week. * ROS: G eneral / Constitutional: Patient [...] R26.2 Plan: * Treatment: * Follow Up: 2 Months (Reason: will follow up with patient once she has done more lymphatic massage and see dr viveros) Billing Information: * Visit Code: 57316 Office Visit, Est Pt., Level 3. * Electronic signature of GUS SMITH DPM on 10/05/2025 at 11:22 AM COOK SHORT ORDER Sign off status: Pending * Provider: Faith Covarrubias DPM Date: 0 01/29/2025 Generated for Tom ceballos/Bryon/Johnitting on: 12/05/2024 11:22 AM COOK SHORT ORDER
--- OUTSIDE RECORDS SUMMARY | 2025-04-02 09:30 | XMS_ITS ---
Author Organization [facility] Address [address] [place], [place] [address] Care Team Providers Care Laboratory Supervisor Name Role Phone SAUD COVARRUBIAS Unavailable [phone] Angelique Flores Unavailable Unavailable REASON FOR VISIT foot pain follow up, swelling left foot follow up Social History Tobacco Use: Social History Observation Description Date Details (start date - stop date) Never Smoker NA - NA Social History Tobacco Use: Social Info Question Answer Notes Tobacco Control (Standard) Tobacco use: Nonsmoker Encounters Encounter Location Date Provider Diagnosis [facility] [address] [place], [place] [phone] 04/02/2025 SAUD COVARRUBIAS Left foot pain M79.672 ; Lymphedema of left leg I89.0 ; Pain in right foot M79.671 ; Edema of foot R60.0 and Difficulty in walking R26.2 Assessments Encounter Date Diagnosis (ICD Code) Assessment Notes Treatment Notes Treatment Clinical Notes Section Notes 04/02/2025 Left foot pain (ICD-10 - M79.672) 04/02/2025 Lymphedema of left leg (ICD-10 - I89.0) 04/02/2025 Pain in right foot (ICD-10 - M79.671) 04/02/2025 Edema of foot (ICD-10 - R60.0) 04/02/2025 Difficulty in walking (ICD-10 - R26.2) 04/02/2025 Other 1.Swelling is not stemming from bunion [...] to watch for possible rash/allergic reaction 4. Orthotic Recommendation: I recommended functional orthotics for the patient. Plan Of Treatment Treatment Notes Assessment Notes [...] to watch for possible rash/allergic reaction 4. Orthotic Recommendation: I recommended functional orthotics for the patient. Next Appt Details Follow Up: prn, Reason: will call if symptoms worsen or would like orthotics History and Physical Notes * HPI (History of Present Illness) Category Sub-Category Detail Notes Category Not es HPI Follow Up Visit Patient presents for follow up visit for left foot pain., Patient states their problem is, improving. Still has occassional pain but patient thinks it is because her foot is becoming flatter., MA: mf Examination Category Sub-Category Detail Notes Category Not es Dermatologic Skin findings: Skin is warm, dr y, supple with no breaks in the skin. Neurologic Gross sensation Gross sensation is intact to light touch. Vascular Dorsalis pedis pulse: 2/4, bilateral Edema: , non-pitting edema, diffuse to dorsal left midfoot - significantly lessened Capillary refill: less than 3 seconds, bilaterally [...] s noted to be, planus, bilaterally Gait Constitutional Constitutional The patient is a wake, alert, well developed, well groomed and well nourished. Progress Notes * Igor JACK MDOB:2004 (19 yo F)Acc No.[id number]:04/02/2025 Patient: Igor Pérez Provider: Faith Covarrubias DPM :2005 A ge:19 Y S ex:Female Date:04/02/2025 Address:[address] [place] [address] [address] [id number] Subjective: * Chief Complaints: * F oot pain follow upSwelling left foot follow up * HPI: H PI: [facility]., Patient states their problem is, improving. Still has occassional pain but patient thinks it is because her foot is becoming flatter., MA: . * ROS: G eneral / Constitutional: [...] denies b alance difficulty, Numbness, Burning/Tingling. * Social History: T obacco Use: T obacco Control (Standard) T obacco use: N onsmoker. Social History Verified. * Medications: N one Objective: * Examination: [...] structure is noted to be, planus, bilaterally. N eurologic: Gross sensation G ross sensation is intact to light touch..? V ascular: Dorsalis pedis pulse: 2 /4, bilateral. Posterior tibial pulse: 2 /4, bilaterally. Capillary refill: l ess than 3 seconds, bilaterally. Edema: , non-pitting edema, diffuse to dorsal left midfoot - significantly lessened. D ermatologic: Skin findings: S kin is [...] * Follow Up: p rn (Reason: will call if symptoms worsen or would like orthotics) Billing Information: * Visit Code: 15415 Office Visit, Est Pt., Level 3. * Electronic signature of GUS SMITH DPM on 10/05/2025 at 11:22 AM PRODUCTION CLERK Sign off status: Pending * Provider: Faith Covarrubias DPM Date: 0 04/02/2025 Generated for Tom ceballos/Bryon/Johnitting on: 1 12/05/2024 11:22 AM PRODUCTION CLERK
--- OUTSIDE RECORDS SUMMARY | 2025-10-05 11:22 | XMS_ITS | Clinical Summary ---
Author Organization [facility] Address [address] [place] [address] Care Team Providers Care Sales Support Engineer Name Role Phone Angelique Flores MD Primary Care Provider [phone] Allergies No known active allergies Medications methylPREDNISol one (Medrol, Gene,) 4 mg Dosepack follow package directions 1 packet 4 Active promethazine-DM (PROMETHAZINE-D M) 1.25-3 mg/mL syrup Take 5 mL by mouth 4 (four) times a day as needed for cough 118 mL 4 Active Active Problems No known active problems Surgical History Surgery Date Site/Laterality Comments BREAST [...] on file 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 Gender Identity Not on file Sexual Orientation [...] Depression Screening 2004 Hepatitis C Screening 2004 HPV Vaccines (1 - 3-dose series) 2019 Meningococcal B Vaccine (1 o f 2 - Standard) 2020 Regular Well Visit/Exam 18-64 2022 Pneumococcal vaccine <65 (1 of 1 - PPSV23, PCV20, or PCV21) 2023 02/06/2006, 08/05/2005, 06/13/2005, Additional history exists Covid-19 Vaccine (3 - 2024-2 6 season) 2025 03/17/2021, 02/23/2021 Influenza Vaccine (#1) 2025 , 08/11/2020, 10/29/2019, Additional history exists DTaP/Tdap/Td Vaccine (7 - Td or Tdap) 07/11/2026 07/11/2016, 06/01/2010, 05/08/2006, Additional history exists Hepatitis B Screening Completed 12/08/2005 , 08/05/2005, 01/18/2005 Varicella Vaccines Completed 07/07/2008, 12/08/2005 Meningococcal Vaccine Completed 12/04/2020, 016 Medical Devices Implanted Type Area Electrician Wiring Device Identifier Shelf Expiration Date Model / Serial / Lot Cert[employer] Limited Partnership Marker Biospy Site Mini Cork Shape [employer] - [id number] Implanted:Qty: 1 on 02/28/2023 at [facility] Clip Left: Breast [employer] Partnership [id number] 07/05/2023 SMARK-FINA ERO / / [id number] Insurance [facility] [id number] [facility] [id number] Care Teams Sales Support Engineer Relationship Specialty Start Date End Date Angelique Flores MD [address] [place] [address] PCP - General Family Medicine 01/17/23
--- OUTSIDE RECORDS SUMMARY | 2025-10-05 11:22 | XMS_ITS | Patient Health Record ---
Author Organization [facility] Address [address] [place], [place] [id number] Care Team Providers Care Arrow Point Attacher Name Role Phone SAUD LUND Unavailable [phone] MarkAngelique Unavailable Unavailable Allergies No Known Allergies Reason For Referral No Information Immunizations Vaccine [...] Notes Tobacco Control (Standard) Tobacco use: Nonsmoker Procedures Procedure Date Ordered Date Performed Result Body Sit e PHYSICAL THERAPY 01/29/2025 02/27/2025 SEE PHYSICAL THERAP Y REPORT Encounters Encounter Location Date Provider Diagnosis [facility] [place] [address] [place], [place] [id number] 10/31/2024 SAUDGUILLERMO LUND Left foot pain M79.672 ; Lymphedema of left leg I89.0 ; Pain in right foot M79.671 ; Edema of foot R60.0 and Difficulty in walking R26.2 [facility] [address] [place], [place] [id number] 01/08/2025 SAUDGUILLERMO LUND Left foot pain M79.672 ; Lymphedema of left leg I89.0 ; Pain in right foot M79.671 ; Edema of foot R60.0 and Difficulty in walking R26.2 [facility] [address] [place], [place] [id number] 01/29/2025 SAUDGUILLERMO LUND Left foot pain M79.672 ; Lymphedema of left leg I89.0 ; Pain in right foot M79.671 ; Edema of foot R60.0 and Difficulty in walking R26.2 [facility] [address] [place], [place] [id number] 04/02/2025 SAUDGUILLERMO LUND Left foot pain M79.672 ; Lymphedema of [...] in right foot (ICD-10 - M79.671) 01/08/2025 Pain in right foot (ICD-10 - M79.671) 10/31/2024 Edema of foot (ICD-10 - R60.0) 01/29/2025 Pain in right foot (ICD-10 - M79.671) 04/02/2025 Pain in right foot (ICD-10 - M79.671) 01/29/2025 Edema of foot (ICD-10 - R60.0) 01/08/2025 Edema of foot (ICD-10 - R60.0) 10/31/2024 Difficulty in walking (ICD-10 - R26.2) 04/02/2025 Edema of foot (ICD-10 - R60.0) 01/08/2025 [...] orthotics for the patient. Plan Of Treatment No Information Insurance Providers Payer Name Payer Address Payer Phone Subscriber Number Group Number Insured Name Patient Relationship to Insured Coverage Start Date Coverage End Date [employer] PPO [address] [place], [place] [id number] Igor Jack Self - patient is the insured Medical (General) History Medical History History ICD Code Asthma/Bronchitis
--- OUTSIDE RECORDS SUMMARY | 2025-10-05 11:23 | XMS_ITS | Clinical Summary ---
Author Organization [facility] Address [address] [place] [address] Care Team Providers Care Labor Relations Worker Name Role Phone Angelique Flores MD Primary Care Provider [phone] Allergies No known active allergies Medications albuterol sulfate HFA 108 (90 Base) MCG/ACT inhaler Inhale 2 puffs into the lungs every 4 (four) hours as needed. 1 Active albuterol (PROVENTIL) (2.5 MG/3ML) 0.083% nebulizer solution albuterol sulfate 2.5 mg/3 mL (0.083 %) solution for nebulization 1 Active AIRSUPRA 90-80 MCG/ACT Aerosol INHALE 2 PUFFS INTO LUNGS 4 TIMES DAILY NEEDED 4 Active amphetamine-dex troamphetamine (ADDERALL) 10 MG tablet Take 1 tablet (10 mg total) by mouth 2 (two) times daily as needed. 4 Active vitamin D3 (CHOLECALCIFERO L) 1.25 mg capsule Take 1 capsule (1.25 mg total) by mouth once a week. 4 Active FEROSUL 325 (65 Fe) MG tablet Take 1 tablet (325 mg total) by mouth daily. 4 Active methylphenidate CR (CONCERTA) 36 MG tablet Take 1 tablet (36 mg total) by mouth daily. 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 Febrile seizure 03/08/2010 Overview (11/01/2024): Has had 3, last one at 5.5 years old Mild intermittent asthma 08/20/2008 Overview (11/01/2024): First seen by Nata Meyer 03/04 in clinic. 24 week gestation complicated by PROM and chorioamnionitis. NICU for 4 months and ventilated for a part of that time. Went home WITHOUT oxygen. Allergy SPT done 03/04 - negative for all 13 items tested. Sleep study 05/04 - normal. Not seen again in pulm clinic till 12/2009. Recurrent problems in winter 2007- and 2008-. Switched budesonide nebs to Flovent MDI. LCK Allergy skin prick test showed sensitization (mild) to cockroach, few trees, weeds, molds. LCK 04/2012 Immunizations Immunization Administration Dates Next Due Dtap (Acel-Immune) 06/01/2010, 6,08/05/2005,05/27,01/18/2005 H1N1 Injectable 2009 Influenza 10/15/2009 HPV GARDASIL 9-VALENT 09/11/2018,07/24/2017 Hepatitis A (Havrix [address]) 07/07/2008,2005 Hepatitis B (Generic: Adult) 12/08/2005,08/05/20 05,01/18/2005 Hib (Generic) 02/06/2006, 5,06/13/2005,12/29 Influenza (Generic) 10/02/2013, 2,09/05/2011,08/28,08/21/2009 Influenza Adult (Generic) 08/11/2020,01/2019,09/11/2018,07/28,07/11/2016,09/17/2015 MENINGOCOCCAL A C Y&W-135 oligosaccharide (MENVEO) 07/11/2016 MMR (MMRII) 06/01/2010,02/06/2006 Meningococcal (Menactra) 12/04/2020 Pneumococcal (Generic) 02/06/2006,2004,06/13/2005,05/2005 Polio IPV (Ipol) 06/01/2010,,06/13/2005,12/29 Tdap (Generic) 07/11/2016 Varicella (Varivax) 07/07/2008,12/08/2005 Social History Tobacco Use Types Packs/Day Years Used Date Smoking Tobacco: Never Smokeless Tobacco: Never Alcohol Use Standard Drinks/Week Comments Not Currently 0 (1 standard drink = 0.6 oz pur e alcohol) Comments No Sex and Gender Information Value Date Recorded Sex Assigned at Female 12/12/2024 3:23 PM [employer] Legal Sex Female 6:08 PM CDT Gender Identity Not on file Sexual Orientation Not on file Last Filed Vital Signs Vital Sign Reading Time Taken Comments Blood Pressure 130/70 02/06/2025 3:15 PM CDT Pulse 87 02/06/2025 3:15 PM CDT Temperature 36.1 C (97 F) 10/05/2021 3:15 PM [employer] Respiratory Rate 16 10/05/2021 3:15 PM [employer] Oxygen Saturation 99% 10/05/2021 3:15 PM [employer] Inhaled Oxygen Concentration - - Weight 65.7 kg (144 lb 12.8 oz) 02/06/2025 3:15 PM CDT Height 170.2 cm (5' 7) 02/06/2025 3:15 PM CDT Body Mass Index 22.68 02/06/2025 3:15 PM CDT Plan of Treatment Health Maintenance Due Date Last Done Comments Annual Physical 2007 Meningococcal B Vaccine (1 of 2 - Standard) 2020 Hepatitis C 2022 Pneumococcal Vaccine: Pediatrics (0 to 5 Years) and At-Risk Patients (6 to 49 Years) (1 of 2 - PCV) 2023 02/06/2006, 08/05/2005, 06/13/2005, Additional history exists COVID-19 Vaccine ( season) 2025 03/17/2021, 02/23/2021 Influenza Adult (#1) 2025 08/11/2020, 10/29/2019, 09/11/2018, Additional history exists DTaP, Tdap and Td Vaccines (7 - Td or Tdap) 07/11/2026 07/11/2016, 06/01/2010, 05/08/2006, Additional history exists Hepatitis B Vaccines Completed 12/08/2005, 08/05/2005, 01/18/2005 Hepatitis A Vaccines Completed 07/07/2008, 11/06/20 06 HPV Vaccines Completed 09/11/2018, 07/24/2017 Meningococcal Vaccine Completed 12/04/2020, 016 RSV Immunizations Under 20 Months Aged Out No longer eligible based on patient's age to complete this topic Insurance [employer] [facility] ACCESS [facility] [employer] [facility] Care Teams Labor Relations Worker Relationship Specialty Start Date End Date Angelique Flores MD [address] [id number] PCP - General FAMILY PRACTICE 10/05/21
[2025-10-05 11:31] VITALS: BP 143/84; PULSE 110; RESP 18; TEMP 36.6; O2SAT 100
[2025-10-05] MEDS: LIDO 1%/EPINEPHRINE 1:100,000 20 ML VIAL INFILTRATE (11:54)
--- NOTE | 2025-10-05 12:18 | ED.WOUNDLAC ---
HPI - Wound/Laceration General Chief Complaint: Wound/Laceration Stated Complaint: wound/foot Time Seen by Provider: 10/05/25 11:32 Source: patient and RN notes reviewed Mode of arrival: ambulatory Limitations: no limitations History of Present Illness HPI narrative: 19-year-old female presents today complaining of a possible foreign body embedded in the bottom of her right foot since yesterday while working at [employer]. States she suddenly thought that there was a rock in her shoe. States mother attempted removal of foreign body from the bottom of her foot last night but was unsuccessful. States she does feel that something is embedded in her foot and that it is somewhat painful with weight-bearing. Related Data Home Medications ?Medication ?Instructions ?Recorded ?Confirmed ?Last Taken ?Type albuterol 90 mcg-budesonide 80 inh inhalation 04/28/25 Unknown History mcg/actuation HFA aerosol inhaler (Airsupra) ferrous sulfate 325 mg (65 mg mg 04/28/25 Unknown History iron) tablet (FeroSul) Allergies Allergy/AdvReac Type Severity Reaction Status Date / Time No Known Allergies Allergy Verified 10/05/25 11:33 [facility] Comments At time of signature, I have reviewed and agree with nursing past medical, surgical, social and family history unless otherwise noted. Please see nursing chart for further information. There is no relevant family history pertinent to the presenting complaint Exam Narrative: GENERAL: Well-appearing, well-nourished, and in no acute distress. HEAD: Normocephalic, atraumatic. EYES: EOMI. No redness or drainage. Conjunctivae normal. ENT: Mucous membranes pink and moist. NECK: Normal AROM. CHEST: No respiratory distress. EXTREMITIES: Normal range of motion. No edema.Right foot: 4mm break in skin at the plantar aspect of the lateral midfoot. No erythema. Mild TTP. Tiny amount of serous fluid from the wound. See procedure note SKIN: Warm, dry, no rash. Capillary refill normal. Normal skin turgor. NEURO: No focal deficits. Alert and oriented x3. Gait steady. PSYCH: Normal affect. No signs of depression or anxiety. Course Course Level of Care: Express Care Visit Vital Signs Vital signs: Vital Signs Temperature 98 F 10/05/25 11:31 Pulse Rate 110 H 10/05/25 11:31 Respiratory Rate 18 10/05/25 11:31 Blood Pressure 143/84 H 11/09/25 11:31 Pulse Oximetry 100 10/05/25 11:31 Oxygen Delivery Room Air 10/05/25 11:31 Temperature 98 F 10/05/25 11:31 Pulse Rate 110 H 10/05/25 11:31 Respiratory Rate 18 10/05/25 11:31 Blood Pressure 143/84 H 10/05/25 11:31 Pulse Oximetry 100 10/05/25 11:31 Oxygen Delivery Room Air 10/05/25 11:31 Reviewed. Recheck of heart rate before discharge was 89. Procedures Foreign Body Removal Foreign Body #1: Foreign Body Removal Date: 10/05/25 Foreign Body Removal Time: 12:19 Site: right and foot Description of foreign body: other (tiny, black) Sedation/Analgesia: other (1 mL lidocaine with epinephrine) Technique: removal with forceps Confirmed by:: direct visualization Complications: none Neurovascular: no change from pre-procedure MDM - Wound/Laceration MDM Narrative Medical decision making narrative: 19-year-old female presents today complaining of a possible foreign body embedded in the bottom of her right foot since yesterday while working at [employer]. States she suddenly thought that there was a rock in her shoe. States mother attempted removal of foreign body from the bottom of her foot last night but was unsuccessful. States she does feel that something is embedded in her foot and that it is somewhat painful with weight-bearing. Upon exam,4mm break in skin at the plantar aspect of the lateral midfoot. No erythema. Mild TTP. Tiny amount of serous fluid from the wound. A punctate black object was removed from the wound after enlarging it slightly with the scalpel. No other foreign bodies noted within the wound. Wound irrigated extensively with saline. Vital signs stable. Recheck of heart rate was 89 down from 110 upon arrival. Anticipatory guidance given. Differential Diagnosis Differential diagnosis: Likely other (Foreign body, laceration) Critical Care Time Critical Care Time Critical Care Time: No Discharge Plan Discharge Clinical Impression: Foreign body in foot, right Qualifiers: Encounter type: initial encounter Qualified Code(s): S90.851A - Superficial foreign body, right foot, initial encounter Patient Disposition: Home Condition: Stable Instructions: Soft Tissue Foreign Body (ED) Additional Instructions: A tiny black foreign body was removed from your foot, but no other splinters were found. Your foot was thoroughly irrigated and investigated. Wash once a day with soap and water and keep covered until scabbed over. No submerging your foot in standing water such as pools, hot tubs, bathtubs until scab forms. Patient Language: Swedish Prescriptions: No Action ferrous sulfate [FeroSul] 325 mg (65 mg iron) tablet Airsupra 90-80 mcg/actuation HFA aerosol inhaler INHALATION prednisone 20 mg tablet 40 mg PO DAILY Qty: 10 0RF Rx Instructions: Take two tabs daily for 5 days Follow-up/Referrals: Mark,Angelique Kc MD [Primary Care Provider] Time of Disposition: 12:18
[2025-10-05 12:20] VITALS: PULSE 89
== END 2025-10-05 12:20 | disposition home or self-care (01) ==
PROVIDERS: Emergency Provider Nurse Practitioner; PCP Family Medicine
DX: S90.851A Superficial foreign body, right foot, initial encounter (principal); W45.8XXA Other foreign body or object entering through skin, initial encounter; J45.909 Unspecified asthma, uncomplicated
CPT/HCPCS: 99212; G0463; J2004